=== PATIENT | male | born 1970 | race Caucasian/White ===

== ENCOUNTER 2022-10-14 17:09 | Outpatient (CLI) | payer BC, SELFPAY ==
[2022-10-17 00:51] LABS: Adenovirus PCR Not Detected; Astrovirus PCR Detected; Campylobacter PCR Not Detected; Cdiff Toxin A/B PCR Not Detected; Cryptosporidium PCR Not Detected; Cyclospora cayetanensis PCR Not Detected; Entamoeba histolytica PCR Not Detected; Enteroaggregative E coli PCR Not Detected; Enteropathogenic E coli PCR Not Detected; Enterotoxigenic E coli PCR Not Detected; Giardia lamblia PCR Not Detected; Norovirus Gi/GII PCR Not Detected; Plesiomonas shig PCR Not Detected; Rotavirus A PCR Not Detected; Salmonella PCR Not Detected; Sapovirus PCR Not Detected; Shiga toxin E coli PCR Not Detected; Shigella/Enteroinvasive E coli Not Detected; Vibrio PCR Not Detected; Vibrio cholerae PCR Not Detected; Yersinia enterocolitica PCR Not Detected
== END 2022-10-14 17:10 | disposition home or self-care (01) ==
LOC: NFLDUCREF 17:09
PROVIDERS: Visit Provider Family Medicine
DX: R53.83 Other fatigue (principal); R19.7 Diarrhea, unspecified; R11.0 Nausea; Z83.1 Family history of other infectious and parasitic diseases
CPT/HCPCS: 87505